=== PATIENT | female | born 1985 ===

== ENCOUNTER 2016-12-12 20:13 | Emergency (ER) | payer MEDICAID ==
[2016-12-12 20:41] VITALS: BMI 28.3
[2016-12-12 20:43] VITALS: RESP 17; TEMP 97.9
--- NOTE | 2016-12-12 21:04 | ED PDOC ---
Arrival/HPI - General Chief Complaint: Headache Time Seen by Provider: 12/12/16 20:56 Historian: Patient - History of Present Illness Narrative History of Present Illness (Text): 12/12/16 21:10 Miriam Yanes is a 31 year old female, whose past medical history includes migraines, GERD, depression, and bipolar disorder, who presents to the Emergency department complaining of right ear pain for the past few days. Patient also reports associated right-sided headache, which she states is consistent with previous migraines. Patient denies any fever, chills, chest pain , shortness of breath, nausea, vomiting, diarrhea, urinary symptoms, back pain, neck pain, dizziness, vision changes, focal neurological deficits, or any other complaints. Time/Duration: < week (few days) Symptom Onset: Gradual Symptom Course: Unchanged Activities at Onset: Rest, Light Modifying Factors (Text): none Context: Home Past Medical History - Provider Review Nursing Documentation Reviewed: Yes - Infectious Disease Hx of Infectious Diseases: None - Tetanus Immunization Tetanus Immunization: Unknown - Cardiac Hx Cardiac Disorders: No - Pulmonary Hx Respiratory Disorders: Yes Hx Asthma: Yes - Neurological Hx Neurological Disorder: Yes Hx Migraine: Yes - HEENT Hx HEENT Disorder: No - Renal Hx Renal Disorder: No - Endocrine/Metabolic Hx Endocrine Disorders: Yes Hx Diabetes Mellitus Type 2: Yes Hx Systemic Lupus Erythematosus: Yes - Hematological/Oncological Hx Blood Disorders: No - Integumentary Hx Dermatological Disorder: No - Musculoskeletal/Rheumatological Hx Musculoskeletal Disorders: No Hx Falls: No - Gastrointestinal Hx Gastrointestinal Disorders: No - Genitourinary/Gynecological Hx Genitourinary Disorders: Yes Hx Urinary Tract Infection: Yes Other/Comment: 5 natural delivery - Psychiatric Hx Psychophysiologic Disorder: Yes Hx Bipolar Disorder: Yes Hx Substance Use: No - Surgical History Hx Appendectomy: Yes Hx Cholecystectomy: Yes - Anesthesia Hx Anesthesia: Yes Hx Anesthesia Reactions: No Hx Malignant Hyperthermia: No - Suicidal Assessment Feels Threatened In Home Enviroment: No Family/Social History - Physician Review Nursing Documentation Reviewed: Yes Family/Social History: No Known Family HX Smoking Status: Never Smoked Hx Alcohol Use: No Hx Substance Use: No Allergies/Home Meds Allergies/Adverse Reactions: Allergies latex Allergy (Verified 01/03/16 18:46) RASH nut - unspecified [nut] Allergy (Verified 01/03/16 18:46) RASH Penicillins Allergy (Verified 01/03/16 18:46) RASH Home Medications: Home Meds Medication Instructions Recorded Confirmed FLUoxetine [Prozac] 20 mg PO DAILY 06/09/15 01/03/16 Metformin Hydrochloride [Metformin] 500 mg PO DAILY 06/09/15 01/03/16 Albuterol HFA [Ventolin HFA 90 1 puff INH PRN PRN 12/03/15 01/03/16 mcg/actuation (8 g)] Medication For Lupus Unsure Of Name 12/03/15 Unknown Medication For Migraine 12/03/15 Review of Systems - Physician Review All systems were reviewed & negative as marked: Yes - Review of Systems Constitutional: Normal. absent: Fevers Eyes: Normal ENT: Other (+right ear pain) Respiratory: Normal. absent: SOB, Cough Cardiovascular: Normal. absent: Chest Pain Gastrointestinal: Normal. absent: Abdominal Pain, Diarrhea, Nausea, Vomiting Genitourinary Female: Normal. absent: Dysuria, Frequency, Hematuria, Urine Output Changes Musculoskeletal: Normal. absent: Back Pain, Neck Pain Skin: Normal. absent: Rash Neurological: Headache. absent: Dizziness Endocrine: Normal Hemo/Lymphatic: Normal Psychiatric: Normal Physical Exam Vital Signs Reviewed: Yes Vital Signs Temp Pulse Resp BP Pulse Ox 12/12/16 22:50 76 17 122/70 98 12/12/16 20:41 97.9 F 82 17 113/73 99 Temperature: Afebrile Blood Pressure: Normal Pulse: Regular Respiratory Rate: Normal Appearance: Positive for: Well-Appearing, Non-Toxic, Comfortable Pain Distress: None Mental Status: Positive for: Alert and Oriented X 3 - Systems Exam Head: Present: Atraumatic, Normocephalic Pupils: Present: PERRL Extroacular Muscles: Present: EOMI Conjunctiva: Present: Normal Ears: Present: Other (Swelling to right TM) Mouth: Present: Moist Mucous Membranes Pharnyx: Present: Normal. No: ERYTHEMA, EXUDATE, TONSILS ENLARGED, Peritonsilar Swelling, Uvular Deviation, Muffled/Hoarse Voice, Strider, Soft Palate/Uvular Edema Nose (External): Present: Atraumatic Nose (Internal): Present: Normal Inspection Neck: Present: Normal Range of Motion. No: Meningeal Signs, MIDLINE TENDERNESS , Paraspinal Tenderness Respiratory/Chest: Present: Clear to Auscultation, Good Air Exchange. No: Respiratory Distress, Accessory Muscle Use Cardiovascular: Present: Regular Rate and Rhythm, Normal S1, S2. No: Murmurs Abdomen: Present: Normal Bowel Sounds. No: Tenderness, Distention, Peritoneal Signs Neurological: Present: GCS=15, CN II-XII Intact, Speech Normal, Motor Func Grossly Intact, Normal Sensory Function, Normal Cerebellar Funct Skin: Present: Warm, Dry, Normal Color. No: Rashes Psychiatric: Present: Alert, Oriented x 3, Normal Insight, Normal Concentration Medical Decision Making ED Course and Treatment: 12/12/16 21:10 Impression: 31 year old female complaining of right ear pain and right-sided headache for past few days. Differential Diagnosis included but are not limited to: otitis media vs. migraine Plan: -- Biaxin -- Percocet -- Reassess and disposition Prior Visits: Notes and results from previous visits were reviewed. On 01/23/2016, pt was seen in the Emergency department for flank pain. Pt was d/ c home. Progress Notes: 12/12/16 22:40 On reevaluation the patient feels better and is in no acute distress. I have discussed the results and plan with the patient, who expresses understanding. Patient given the opportunity to ask question, all questions were answered and there is agreement with the plan to discharge the patient home. Patient is stable for discharge. Patient was instructed to follow up with physician/clinic in 1-2 days or return if symptoms persist/worsen or new concerning symptoms arise. - Medication Orders Current Medication Orders: Discontinued Medications Clarithromycin (Biaxin Filmtab) 500 mg PO STAT STA PRN Reason: Protocol Stop: 12/12/16 21:20 Last Admin: 12/12/16 21:39 Dose: 500 mg Ketorolac Tromethamine (Toradol) 60 mg IM ONCE ONE Stop: 12/12/16 22:00 Last Admin: 12/12/16 22:26 Dose: 60 mg Oxycodone/Acetaminophen (Percocet 5/325 Mg Tab) 1 tab PO STAT STA Stop: 12/12/16 21:19 Last Admin: 12/12/16 21:32 Dose: 1 tab - Scribe Statement The provider has reviewed the documentation as recorded by the Estelle Lane Provider Attestation: All medical record entries made by the Gretchenibtyler were at my direction and personally dictated by me. I have reviewed the chart and agree that the record accurately reflects my personal performance of the history, physical exam, medical decision making, and the department course for this patient. I have also personally directed, reviewed, and agree with the discharge instructions and disposition. Disposition/Present on Arrival - Present on Arrival Any Indicators Present on Arrival: No History of DVT/PE: No History of Uncontrolled Diabetes: No Urinary Catheter: No History of Decub. Ulcer: No History Surgical Site Infection Following: None - Disposition Have Diagnosis and Disposition been Completed?: Yes Diagnosis: Otitis media of right ear Disposition: HOME/ ROUTINE Disposition Time: 22:41 Condition: GOOD Discharge Instructions (ExitCare): Otitis Media (ED) Prescriptions: Clarithromycin [Biaxin Filmtab] 500 mg PO BID #20 tab oxyCODONE/Acetaminophen [Percocet 5/325 mg Tab] 1 ea PO QID #8 tab Referrals: Jesu Mares MD [Primary Care Provider] - Follow up with primary Sly Banuelos DO [Staff Provider] - Follow up with primary
[2016-12-12] MEDS ORDERED: Oxycodone/Acetaminophen 5/325 mg Tab PO STA (21:18)
[2016-12-12 22:51] VITALS: BP 122/70; PULSE 76; O2SAT 98
== END 2016-12-12 22:50 | disposition home or self-care (01) ==
LOC: ED 20:13
DX: H66.91 Otitis media, unspecified, right ear (principal)
CPT/HCPCS: 96372; 99285; J1885

== ENCOUNTER 2017-02-21 22:00 | Emergency (ER) | payer MEDICAID ==
[2017-02-21 22:23] VITALS: BMI 29.2
[2017-02-21] MEDS ORDERED: Sodium Chloride 0.9% 1,000 ML IV STA (22:40)
[2017-02-21] MEDS ORDERED: Morphine 2 mg/ml ISec IVP STA (22:58)
--- NOTE | 2017-02-21 23:10 | ED PDOC ---
Arrival/HPI - General Chief Complaint: GI Problem Time Seen by Provider: 02/21/17 22:39 Historian: Patient - History of Present Illness Narrative History of Present Illness (Text): 02/21/17 22:53 Miriam Yanes is a 31 year old female, whose past medical history includes migraine, GERD, depression, and bipolar disorder, who presents to the emergency department complaining of a migraine that started 2 days ago. Patient states that she experienced associated body aches, chills, vision changes, and multiple episodes of vomiting since 06:00 this morning. Patient says that has been taking prescribed migraine medications (unable to recall name) every 6 hours to no relief. Patient denies any other complaint at this time. PMD: Dr. Mares Time/Duration: < week Symptom Onset: Gradual Symptom Course: Unchanged Severity Level: Moderate Activities at Onset: Rest Context: Home Past Medical History - Provider Review Nursing Documentation Reviewed: Yes - Infectious Disease Hx of Infectious Diseases: None - Tetanus Immunization Tetanus Immunization: Unknown - Cardiac Hx Cardiac Disorders: No - Pulmonary Hx Respiratory Disorders: Yes Hx Asthma: Yes - Neurological Hx Neurological Disorder: Yes Hx Migraine: Yes - HEENT Hx HEENT Disorder: No - Renal Hx Renal Disorder: No - Endocrine/Metabolic Hx Endocrine Disorders: Yes Hx Diabetes Mellitus Type 2: Yes Hx Systemic Lupus Erythematosus: Yes - Hematological/Oncological Hx Blood Disorders: No - Integumentary Hx Dermatological Disorder: No - Musculoskeletal/Rheumatological Hx Musculoskeletal Disorders: No Hx Falls: No - Gastrointestinal Hx Gastrointestinal Disorders: No - Genitourinary/Gynecological Hx Genitourinary Disorders: Yes Hx Urinary Tract Infection: Yes Other/Comment: 5 natural delivery - Psychiatric Hx Psychophysiologic Disorder: Yes Hx Bipolar Disorder: Yes Hx Substance Use: No - Surgical History Hx Appendectomy: Yes Hx Cholecystectomy: Yes - Anesthesia Hx Anesthesia: Yes Hx Anesthesia Reactions: No Hx Malignant Hyperthermia: No - Suicidal Assessment Feels Threatened In Home Enviroment: No Family/Social History - Physician Review Nursing Documentation Reviewed: Yes Family/Social History: No Known Family HX Smoking Status: Never Smoked Hx Alcohol Use: No Hx Substance Use: No Allergies/Home Meds Allergies/Adverse Reactions: Allergies latex Allergy (Verified 02/21/17 22:23) RASH nut - unspecified [nut] Allergy (Verified 02/21/17 22:23) RASH Penicillins Allergy (Verified 02/21/17 22:23) RASH Home Medications: Home Meds Medication Instructions Recorded Confirmed No Known Home Med 02/21/17 02/21/17 Review of Systems - Physician Review All systems were reviewed & negative as marked: Yes - Review of Systems Constitutional: Other (body aches). absent: Fevers, Night Sweats Eyes: Vision Changes ENT: absent: Hearing Changes Respiratory: absent: SOB, Cough Cardiovascular: absent: Chest Pain Gastrointestinal: Nausea, Vomiting. absent: Abdominal Pain Genitourinary Female: absent: Dysuria Musculoskeletal: absent: Arthralgias Skin: absent: Rash Neurological: Headache (Migraine) Endocrine: absent: Diaphoresis Hemo/Lymphatic: absent: Adenopathy Psychiatric: absent: Anxiety Physical Exam Vital Signs Reviewed: Yes Vital Signs Temp Pulse Resp BP Pulse Ox 02/22/17 01:43 85 17 120/77 97 02/21/17 22:26 98.9 F 89 14 123/74 99 Temperature: Afebrile Blood Pressure: Normal Pulse: Regular Respiratory Rate: Normal Appearance: Positive for: Well-Appearing, Non-Toxic, Comfortable Pain Distress: None Mental Status: Positive for: Alert and Oriented X 3 - Systems Exam Head: Present: Atraumatic, Normocephalic Pupils: Present: PERRL Extroacular Muscles: Present: EOMI Conjunctiva: Present: Normal Mouth: Present: Moist Mucous Membranes Neck: Present: Normal Range of Motion Respiratory/Chest: Present: Clear to Auscultation, Good Air Exchange. No: Respiratory Distress, Accessory Muscle Use Cardiovascular: Present: Regular Rate and Rhythm, Normal S1, S2. No: Murmurs Abdomen: Present: Normal Bowel Sounds. No: Tenderness, Distention, Peritoneal Signs Back: Present: Normal Inspection Upper Extremity: Present: Normal Inspection. No: Cyanosis, Edema Lower Extremity: Present: Normal Inspection. No: Edema Neurological: Present: GCS=15, CN II-XII Intact, Speech Normal Skin: Present: Warm, Dry, Normal Color. No: Rashes Psychiatric: Present: Alert, Oriented x 3, Normal Insight, Normal Concentration Medical Decision Making ED Course and Treatment: 02/21/17 20:53 Impression: 31 year old female complaining of a migraine episode with associated vomiting, body aches, chills and vision changes for 2 days. Differential Diagnosis include but are not limited to: Migraine Plan: -- Urinalysis -- Labs -- Pepcid, Toradol, Zofran, Morphine, and IV Fluids -- Reassess and disposition Prior Visits: Notes and results from previous visits were reviewed. Patient last seen in ED on 12/12/16 for right ear pain for a few days. Patient was discharged home. Progress Notes: - Lab Interpretations Lab Results: 02/21/17 22:55 02/21/17 22:55 Lab Results 02/21/17 22:55: Sodium 136, Potassium 3.6, Chloride 103, Carbon Dioxide 25, Anion Gap 12, BUN 17, Creatinine 0.6, Est GFR ( Amer) > 60, Est GFR (Non- Af Amer) > 60, Random Glucose 92, Calcium 8.6, Total Bilirubin 0.3, AST 20, ALT 32, Alkaline Phosphatase 76, Total Protein 7.2, Albumin 3.8, Globulin 3.3, Albumin/Globulin Ratio 1.2, Lipase 123 02/21/17 22:55: Urine Color Light yellow, Urine Appearance Clear, Urine pH 6.0, Ur Specific [place] 1.010, Urine Protein Negative, Urine Glucose (UA) Negative, Urine Ketones Negative, Urine Blood Trace-lysed H, Urine Nitrate Negative, Urine Bilirubin Negative, Urine Urobilinogen 0.2, Ur Leukocyte Esterase Trace H , Urine RBC 0 - 2, Urine WBC 0 - 2, Ur Epithelial Cells 1 - 3, Urine Bacteria Few 02/21/17 22:55: WBC 8.1, RBC 4.13, Hgb 11.9 L, Hct 35.5 L, MCV 86.0, MCH 28.8, MCHC 33.5, RDW 13.4, Plt Count 253, MPV 10.3, Gran % 70.4 H, Lymph % (Auto) 23.1 , [place] % (Auto) 4.8, Eos % (Auto) 1.6, Baso % (Auto) 0.1, Gran # 5.67, Lymph # 1.9, [place] # 0.4, Eos # 0.1, Baso # 0.01 I have reviewed the lab results: Yes - Medication Orders Current Medication Orders: Discontinued Medications Acetaminophen (Tylenol 325mg Tab) 975 mg PO STAT STA Stop: 02/22/17 00:28 Last Admin: 02/22/17 00:52 Dose: 975 mg Codeine Sulfate (Codeine) 30 mg PO STAT STA Stop: 02/22/17 00:28 Last Admin: 02/22/17 00:58 Dose: 30 mg Famotidine (Pepcid) 20 mg IVP STAT STA Stop: 02/21/17 22:41 Last Admin: 02/21/17 23:02 Dose: 20 mg Sodium Chloride (Sodium Chloride 0.9%) 1,000 mls @ 1,000 mls/hr IV .Q1H STA Stop: 02/21/17 23:39 Last Admin: 02/21/17 23:03 Dose: 1,000 mls/hr Ketorolac Tromethamine (Toradol) 30 mg IVP STAT STA Stop: 02/21/17 22:59 Last Admin: 02/21/17 23:15 Dose: 30 mg Morphine Sulfate (Morphine) 2 mg IVP STAT STA Stop: 02/21/17 22:59 Last Admin: 02/21/17 23:18 Dose: 2 mg Ondansetron HCl (Zofran Inj) 4 mg IVP STAT STA Stop: 02/21/17 22:41 Last Admin: 02/21/17 23:03 Dose: 4 mg - Scribe Statement The provider has reviewed the documentation as recorded by the Estelle Coats Provider Scribe Attestation: All medical record entries made by the Estelle were at my direction and personally dictated by me. I have reviewed the chart and agree that the record accurately reflects my personal performance of the history, physical exam, medical decision making, and the department course for this patient. I have also personally directed, reviewed, and agree with the discharge instructions and disposition. Disposition/Present on Arrival - Present on Arrival Any Indicators Present on Arrival: No History of DVT/PE: No History of Uncontrolled Diabetes: No Urinary Catheter: No History of Decub. Ulcer: No History Surgical Site Infection Following: None - Disposition Have Diagnosis and Disposition been Completed?: Yes Diagnosis: Migraine headache Disposition: HOME/ ROUTINE Disposition Time: 00:30 Condition: IMPROVED Discharge Instructions (ExitCare): Migraine Headache (ED) Additional Instructions: Thank you for letting us take care of you today. Your provider was Dr. Lewis. You were treated for a migraine headache. The emergency medical care you received today was directed at your acute symptoms. If you were prescribed any medication, please fill it and take as directed. It may take several days for your symptoms to resolve. Return to the Emergency Department if your symptoms worsen, do not improve, or if you have any other problems. Please contact your doctor or call one of the physicians/clinics you have been referred to that are listed on the Patient Visit Information form that is included in your discharge packet. Bring any paperwork you were given at discharge with you along with any medications you are taking to your follow up visit. Our treatment cannot replace ongoing medical care by a primary care provider (PCP) outside of the emergency department. Thank you for allowing the [facility] team to be part of your care today. Follow up with your doctor in 2-3 days for re-evaluation and further treatment. Referrals: Jesu Mares MD [Primary Care Provider] - Follow up with primary
[2017-02-21 23:14] LABS: BASO # 0.01 K/mm3 (0.0-2.0); BASO % 0.1 % (0.0-3.0); EOS # 0.1 (0.0-0.7); EOS % 1.6 % (1.5-5.0); GRAN # 5.67 (1.4-6.5); GRAN % 70.4 % (50.0-68.0); HEMOGLOBIN 11.9 gm/dL (12.0-16.0); LYMPH # 1.9 (1.2-3.4); LYMPH % 23.1 % (22.0-35.0); MEAN CORPUSCULAR HEMOGLOBIN 28.8 pg (25.0-35.0); MEAN CORPUSCULAR HGB CONC 33.5 g/dl (31.0-37.0); MEAN PLATELET VOLUME 10.3 fl (7.0-11.0); MONO # 0.4 (0.1-0.6); MONO % 4.8 % (1.0-6.0); PLATELET COUNT 253 10^3/uL (120.0-450.0); RBC 4.13 10^6/uL (3.5-6.1); RED CELL DISTRIBUTION WIDTH 13.4 % (11.5-14.5); WHITE BLOOD COUNT 8.1 10^3/ul (4.5-11.0)
[2017-02-21 23:15] LABS: URINE BILIRUBIN NEGATIVE (NEGATIVE); URINE BLOOD TRACE-LYSED (NEGATIVE); URINE GLUCOSE (UA) NEGATIVE (NEGATIVE); URINE LEUKOCYTE ESTERASE TRACE Leu/uL (NEGATIVE); URINE NITRATE NEGATIVE (NEGATIVE); URINE PROTEIN NEGATIVE mg/dL (<30 mg/dL); URINE UROBILINOGEN 0.2 E.U./dL (<1 E.U./dL)
[2017-02-21 23:16] LABS: URINE APPEARANCE CLEAR (CLEAR); URINE COLOR LIGHT YELLOW (YELLOW)
[2017-02-21 23:20] LABS: ALB/GLOB RATIO 1.2 (1.1-1.8); ALBUMIN 3.8 g/dL (3.0-4.8); ALT/SGPT 32 U/L (7-56); AST/SGOT 20 U/L (15-39); BLOOD UREA NITROGEN 17 mg/dL (7-21); CALCIUM 8.6 mg/dL (8.4-10.5); GFR AFRICAN-AMERICAN > 60; GFR NON-AFRICAN AMERICAN > 60; LIPASE 123 U/L (23-300)
[2017-02-21 23:34] LABS: URINE RBC 0 - 2 /hpf (0-2)
[2017-02-21 23:36] LABS: URINE BACTERIA FEW (NEG); URINE WBC 0 - 2 /hpf (0-6)
[2017-02-22 01:08] VITALS: TEMP 98.9
[2017-02-22 01:43] VITALS: BP 120/77; PULSE 85; RESP 17; O2SAT 97
== END 2017-02-22 01:44 | disposition home or self-care (01) ==
LOC: ED 22:00
DX: G43.909 Migraine, unspecified, not intractable, without status migrainosus (principal); E11.9 Type 2 diabetes mellitus without complications; M32.9 Systemic lupus erythematosus, unspecified
CPT/HCPCS: 80053; 81001; 83690; 85025; 87086; 96374; 96375; 99283; J1885; J2270; J2405; J7040

== ENCOUNTER 2017-09-20 18:54 | Emergency (ER) | payer MEDICAID ==
[2017-09-20 18:54] VITALS: BMI 29.2
[2017-09-20 19:03] VITALS: TEMP 98.2
[2017-09-20] MEDS ORDERED: Sodium Chloride 0.9% 1,000 ML IV STA (19:40)
--- NOTE | 2017-09-20 19:51 | ED PDOC ---
Arrival/HPI - General Historian: Patient - History of Present Illness Time/Duration: Other (since the morning) Symptom Onset: Sudden Symptom Course: Unchanged - General Chief Complaint: Abdominal Pain Time Seen by Provider: 09/20/17 19:15 - History of Present Illness Narrative History of Present Illness (Text): 09/20/17 19:49 32F with past medical history includes migraine, GERD, depression, and bipolar disorder, ovarian cyst rupture, Lupus. Patient states the left pelvic pain started today. Patient admits to nausea, vomiting, and diarrhea. Patient states she's never had this problem before. Patient states she had oatmeal for the first time today with milk. Patient states she doesn't normally drink milk because it causes her to be bloated. Patient states that when she eats whole wheat bread, she feels that she gets an itchy feeling in her throat. Patient denies fever, chills, admits to a history of ovarian cyst rupture and recently diagnosed with Lupus. Patient admits to nausea, vomiting and diarrhea for one day. LMP: one year ago (on control pills) PMH: migraine, GERD, depression, and bipolar disorder, ovarian cyst rupture, Lupus (not on steroids. just diagnosed). SH: appendectomy, cholecystectomy allergies: penicillin PMD: Dr. Mares ([facility]) Past Medical History - Provider Review Nursing Documentation Reviewed: Yes - Infectious Disease Hx of Infectious Diseases: None - Tetanus Immunization Tetanus Immunization: Unknown - Reproductive Menopause: No Currently : No - Cardiac Hx Cardiac Disorders: No - Pulmonary Hx Respiratory Disorders: Yes Hx Asthma: Yes - Neurological Hx Neurological Disorder: Yes Hx Migraine: Yes - HEENT Hx HEENT Disorder: No - Renal Hx Renal Disorder: No - Endocrine/Metabolic Hx Endocrine Disorders: Yes Hx Diabetes Mellitus Type 2: Yes Hx Systemic Lupus Erythematosus: Yes - Hematological/Oncological Hx Blood Disorders: No - Integumentary Hx Dermatological Disorder: No - Musculoskeletal/Rheumatological Hx Musculoskeletal Disorders: No Hx Falls: No - Gastrointestinal Hx Gastrointestinal Disorders: No - Genitourinary/Gynecological Hx Genitourinary Disorders: Yes Hx Urinary Tract Infection: Yes Other/Comment: 5 natural delivery - Psychiatric Hx Psychophysiologic Disorder: No Hx Substance Use: No - Surgical History Hx Appendectomy: Yes Hx Cholecystectomy: Yes - Anesthesia Hx Anesthesia: Yes Hx Anesthesia Reactions: No Hx Malignant Hyperthermia: No - Suicidal Assessment Feels Threatened In Home Enviroment: No Family/Social History - Physician Review Nursing Documentation Reviewed: Yes Family/Social History: Unknown Family HX Smoking Status: Never Smoked Hx Alcohol Use: No Hx Substance Use: No Allergies/Home Meds Allergies/Adverse Reactions: Allergies latex Allergy (Verified 09/20/17 18:56) RASH nut - unspecified [nut] Allergy (Verified 09/20/17 18:56) RASH Penicillins Allergy (Verified 09/20/17 18:56) RASH Home Medications: Home Meds Medication Instructions Recorded Confirmed metFORMIN [glucOPHAGE] 500 mg PO DAILY 09/20/17 09/20/17 Review of Systems - Review of Systems Constitutional: absent: Fatigue, Weight Change, Fevers Eyes: absent: Vision Changes, Photophobia, Eye Pain ENT: absent: Hearing Changes, Tinnitus, TMJ Pain Respiratory: absent: SOB, Cough, Sputum Gastrointestinal: Stool Changes, Diarrhea, Nausea, Vomiting, Food Intolerance ( lactose and oat intolerance). absent: Abdominal Pain, Appetite Changes, Hematochezia, Hematemesis, Anorexia Musculoskeletal: Other (hip pain) Skin: absent: Rash, Pruritis, Skin Lesions Neurological: Other Endocrine: absent: Diaphoresis, Polyuria, Polydipsia Hemo/Lymphatic: absent: Adenopathy, Easy Bleeding, Easy Bruising Psychiatric: absent: Anxiety, Depression, Suicidal Ideation Physical Exam Temperature: Afebrile Blood Pressure: Normal Pulse: Regular Respiratory Rate: Normal Appearance: Positive for: Non-Toxic, Uncomfortable - Systems Exam Head: Present: Atraumatic, Normocephalic Pupils: Present: PERRL. No: Sluggish, Non-Reactive, Pinpoint Extroacular Muscles: Present: EOMI Conjunctiva: Present: Normal. No: Injected, Icteric Mouth: Present: Dry Pharnyx: Present: Normal. No: ERYTHEMA, EXUDATE Nose (External): Present: Atraumatic. No: Abrasion, Contusion, Laceration Nose (Internal): Present: Normal Inspection Neck: Present: Normal Range of Motion, Lymphadenopathy, Trachea Midline. No: MIDLINE TENDERNESS, JVD Respiratory/Chest: Present: Clear to Auscultation, Good Air Exchange, Respiratory Distress. No: Accessory Muscle Use, Wheezes, Decreased Breath Sounds Cardiovascular: Present: Regular Rate and Rhythm, Normal S1, S2 Abdomen: No: Tenderness, Distention Genitourinary/Pelvic Exam: Present: Other ( left inguinal pain on palpation and with abduction of left leg and external rotatation of left leg) Upper Extremity: Present: Normal Inspection, Normal ROM, Capillary Refill < 2s. No: Edema Lower Extremity: Present: Normal Inspection, NORMAL PULSES, Normal ROM, Capillary Refill < 2 s, Other (no inguinal hernia noted) Neurological: Present: GCS=15, CN II-XII Intact, Speech Normal, Motor Func Grossly Intact Skin: Present: Warm, Dry, Rashes (heliotrope rash noted), Normal Color. No: Diaphoretic, Erythematous, Induration, Abscess Lymphatic: No: Inguinal Adenopathy Psychiatric: Present: Alert, Oriented x 3, Normal Insight, Normal Concentration , Normal Affect (flat) Vital Signs Temp Pulse Resp BP Pulse Ox 09/20/17 18:58 98.2 F 96 H 18 114/79 97 Medical Decision Making - Lab Interpretations Interpretation: No clinic. lab abnormalty ED Course and Treatment: Patient Seen With Resident: In agreement with resident note which contains more details about the patient. Patient was seen and evaluated with resident. Came up with plan and treatment together. (Jarrett Villegas) 09/20/17 20:23 transvaginal us Zofran 1L NS Bolus tylenol for pain 09/20/17 21:01 revisited patient. Patient states tylenol did not touch her and it was like drinking water. Patient sitting cross-legged and stating she still felt nauseous. (Rebekah Fernandez) - Lab Interpretations Lab Results: 09/20/17 19:50 09/20/17 19:50 Lab Results 09/20/17 19:58: Urine Color Yellow, Urine Appearance Clear, Urine pH 6.0, Ur Specific [place] >= 1.030, Urine Protein Trace H, Urine Glucose (UA) Negative, Urine Ketones Negative, Urine Blood Trace-intact H, Urine Nitrate Negative, Urine Bilirubin Negative, Urine Urobilinogen 0.2, Ur Leukocyte Esterase Negative , Urine RBC 2 - 5, Urine WBC Negative, Ur Epithelial Cells 6 - 8, Amorphous Sediment Few, Urine Bacteria Many, Hyaline Casts 0 - 2 09/20/17 19:50: Sodium 144, Potassium 3.8, Chloride 105, Carbon Dioxide 26, Anion Gap 16, BUN 16, Creatinine 0.7, Est GFR ( Amer) > 60, Est GFR (Non- Af Amer) > 60, Random Glucose 79, Calcium 9.8, Magnesium 2.1, Total Bilirubin 0.6, AST 24, ALT 38, Alkaline Phosphatase 80, Total Protein 8.2, Albumin 4.5, Globulin 3.7, Albumin/Globulin Ratio 1.2 09/20/17 19:50: WBC 7.5, RBC 4.49, Hgb 13.0, Hct 38.7, MCV 86.2, MCH 29.0, MCHC 33.6, RDW 13.4, Plt Count 264, MPV 10.8, Gran % 58.0, Lymph % (Auto) 34.7, [place] % (Auto) 4.9, Eos % (Auto) 2.3, Baso % (Auto) 0.1, Gran # 4.37, Lymph # (Auto) 2.6, [place] # (Auto) 0.4, Eos # (Auto) 0.2, Baso # (Auto) 0.01 09/20/17 19:50 09/20/17 19:50 Lab Results 09/20/17 19:58: Urine Color Yellow, Urine Appearance Clear, Urine pH 6.0, Ur Specific [place] >= 1.030, Urine Protein Trace H, Urine Glucose (UA) Negative, Urine Ketones Negative, Urine Blood Trace-intact H, Urine Nitrate Negative, Urine Bilirubin Negative, Urine Urobilinogen 0.2, Ur Leukocyte Esterase Negative , Urine RBC 2 - 5, Urine WBC Negative, Ur Epithelial Cells 6 - 8, Amorphous Sediment Few, Urine Bacteria Many, Hyaline Casts 0 - 2 09/20/17 19:50: Sodium 144, Potassium 3.8, Chloride 105, Carbon Dioxide 26, Anion Gap 16, BUN 16, Creatinine 0.7, Est GFR ( Amer) > 60, Est GFR (Non- Af Amer) > 60, Random Glucose 79, Calcium 9.8, Magnesium 2.1, Total Bilirubin 0.6, AST 24, ALT 38, Alkaline Phosphatase 80, Total Protein 8.2, Albumin 4.5, Globulin 3.7, Albumin/Globulin Ratio 1.2 09/20/17 19:50: WBC 7.5, RBC 4.49, Hgb 13.0, Hct 38.7, MCV 86.2, MCH 29.0, MCHC 33.6, RDW 13.4, Plt Count 264, MPV 10.8, Gran % 58.0, Lymph % (Auto) 34.7, [place] % (Auto) 4.9, Eos % (Auto) 2.3, Baso % (Auto) 0.1, Gran # 4.37, Lymph # (Auto) 2.6, [place] # (Auto) 0.4, Eos # (Auto) 0.2, Baso # (Auto) 0.01 no leukocytosis, no electrolyte abnormalities trace blood in urine, trace protein in urine (Eng,Rebekah) - RAD Interpretation Narrative RAD Interpretations (Text): 09/20/17 21:33 transvaginal US results: Normal Sized ovaries with vascular flow, Uterus 8.6x3.3x5.8cm prominent vascularity noted in uterus, no myometrial mass, endometrial thickness 4mm, Cervix measures 3 cm (Eng,Rebekah) Radiology Orders: 09/20/17 19:40 TRANSVAGINAL [US] Urgent - Medication Orders Current Medication Orders: Discontinued Medications Acetaminophen (Tylenol 325mg Tab) 650 mg PO STAT STA Stop: 09/20/17 19:41 Last Admin: 09/20/17 19:55 Dose: 650 mg MAR Pain/Vitals Document 09/20/17 19:55 AB (Rec: 09/20/17 19:55 [facility] Pain Reassessment Is This A Pain ReAssessment? Yes Sleep Is patient sleeping during reassessment? No Presence of Pain Presence of Pain Yes Sodium Chloride (Sodium Chloride 0.9%) 1,000 mls @ 999 mls/hr IV .Q1H1M STA Stop: 09/20/17 20:40 Last Admin: 09/20/17 19:54 Dose: 999 mls/hr eMAR Start Stop Document 09/20/17 19:54 AB (Rec: 09/20/17 19:55 [email or web address] Intravenous Solution Start Date 09/20/17 Start Time 19:55 End Date 09/20/17 End time 20:55 Total Infusion Time 60 Ondansetron HCl (Zofran Odt) 8 mg PO STAT STA Stop: 09/20/17 19:41 Ondansetron HCl (Zofran Inj) 8 mg IVP STAT STA Stop: 09/20/17 21:00 Disposition/Present on Arrival - Present on Arrival Any Indicators Present on Arrival: No History of DVT/PE: No History of Uncontrolled Diabetes: No Urinary Catheter: No History of Decub. Ulcer: No History Surgical Site Infection Following: None - Disposition Have Diagnosis and Disposition been Completed?: Yes Disposition Time: 21:34 - Disposition Diagnosis: Muscle strain Disposition: HOME/ ROUTINE Patient Problems: Current Active Problems Problem Status Onset Muscle strain Acute Condition: IMPROVED Additional Instructions: patient can follow up with primary care doctor in one week Transvaginal US negative for ovarian torsion, cysts, no free fluid stay hydrated avoid drinking milk/dairy products and avoid oats return to Emergency room for continued vomiting, diarrhea take tylenol as directed Referrals: Jesu Mares MD [Primary Care Provider] - Follow up with primary Forms: [employer] ([place])
[2017-09-20 20:01] LABS: URINE BILIRUBIN NEGATIVE (NEGATIVE); URINE BLOOD TRACE-INTACT (NEGATIVE); URINE GLUCOSE (UA) NEGATIVE (NEGATIVE); URINE LEUKOCYTE ESTERASE NEGATIVE Leu/uL (NEGATIVE); URINE NITRATE NEGATIVE (NEGATIVE); URINE PROTEIN TRACE mg/dL (<30 mg/dL); URINE UROBILINOGEN 0.2 E.U./dL (<1 E.U./dL)
[2017-09-20 20:04] LABS: URINE APPEARANCE CLEAR (CLEAR); URINE COLOR YELLOW (YELLOW)
[2017-09-20 20:06] LABS: URINE BACTERIA MANY (NEG); URINE HYALINE CAST 0 - 2 /hpf; URINE WBC NEGATIVE /hpf (0-6)
[2017-09-20 20:07] LABS: URINE AMORPHOUS SEDIMENT FEW
[2017-09-20 20:49] LABS: ALB/GLOB RATIO 1.2 (1.1-1.8); ALBUMIN 4.5 g/dL (3.0-4.8); ALT/SGPT 38 U/L (7-56); AST/SGOT 24 U/L (14-36); BLOOD UREA NITROGEN 16 mg/dL (7-21); CALCIUM 9.8 mg/dL (8.4-10.5); GFR AFRICAN-AMERICAN > 60; GFR NON-AFRICAN AMERICAN > 60; MAGNESIUM 2.1 mg/dL (1.7-2.2)
[2017-09-20 20:50] LABS: BASO # 0.01 K/mm3 (0.0-2.0); BASO % 0.1 % (0.0-3.0); EOS # 0.2 (0.0-0.7); EOS % 2.3 % (1.5-5.0); GRAN # 4.37 (1.4-6.5); LYMPH # 2.6 (1.2-3.4); LYMPH % 34.7 % (22.0-35.0); MEAN CELL VOLUME 86.2 fl (80.0-105.0); MEAN CORPUSCULAR HGB CONC 33.6 g/dl (31.0-37.0); MEAN PLATELET VOLUME 10.8 fl (7.0-11.0); MONO # 0.4 (0.1-0.6); MONO % 4.9 % (1.0-6.0); RBC 4.49 10^6/uL (3.5-6.1); RED CELL DISTRIBUTION WIDTH 13.4 % (11.5-14.5); WHITE BLOOD COUNT 7.5 10^3/ul (4.5-11.0)
[2017-09-20 21:56] VITALS: BP 138/70; PULSE 81; RESP 15; O2SAT 100
--- NOTE | 2017-09-23 16:07 | US ---
HISTORY: Left inguinal pain. LMP approximately 1 year ago. Currently taking Depo-Provera. COMPARISON: 01/23/2016. Obstetrical ultrasound TECHNIQUE: Transvaginal only. Real -time technique with 2D, duplex and color Doppler FINDINGS: UTERUS: Measures 3.3 x 8.6 cm. Normal in size and appearance. Hypervascular. Myometrium. The findings are nonspecific, can be seen with inflammatory, infectious process ease of the myometrium. No fibroid or other mass lesion seen. ENDOMETRIUM: Measures 4.2 mm in diameter. CERVIX: Closed cervix 3.23 cm in length. Incidental finding: Nabothian cysts the largest measures RIGHT OVARY: Measures 2 x 3.0 cm. No solid mass. Normal flow. LEFT OVARY: Measures 1.8 x 1.9 cm. No solid mass. Normal flow. FREE FLUID: No significant free fluid noted. OTHER FINDINGS: None. IMPRESSION: Mild increased in vascularity of the uterus common nonspecific finding. No focal abnormalities. Unremarkable endometrial echo complex and adnexa as visualized.
== END 2017-09-20 21:56 | disposition home or self-care (01) ==
LOC: ED 18:54
DX: S39.013A Strain of muscle, fascia and tendon of pelvis, initial encounter (principal); X58.XXXA Exposure to other specified factors, initial encounter; E11.9 Type 2 diabetes mellitus without complications; M32.9 Systemic lupus erythematosus, unspecified
CPT/HCPCS: 76830; 80053; 81001; 83735; 85025; 87086; 96361; 96374; 96375; 99283; J1885; J2405; J7040

== ENCOUNTER 2018-08-20 18:52 | Observation (INO) | payer MEDICAID ==
[2018-08-20 18:52] VITALS: BMI 29.2
[2018-08-20] MEDS ORDERED: Sodium Chloride 0.9% 1,000 ML IV STA (19:44)
[2018-08-20 20:09] LABS: URINE BILIRUBIN NEGATIVE (NEGATIVE); URINE BLOOD NEGATIVE (NEGATIVE); URINE GLUCOSE (UA) NEGATIVE (NEGATIVE); URINE LEUKOCYTE ESTERASE NEGATIVE Leu/uL (NEGATIVE); URINE PROTEIN TRACE mg/dL (<30 mg/dL); URINE UROBILINOGEN 0.2 E.U./dL (<1 E.U./dL)
[2018-08-20 20:25] LABS: URINE APPEARANCE CLEAR (CLEAR); URINE COLOR YELLOW (YELLOW)
[2018-08-20 20:28] LABS: URINE BACTERIA FEW /hpf; URINE RBC NEGATIVE /hpf (0-2)
[2018-08-20 20:37] LABS: BASO # 0.01 K/mm3 (0.0-2.0); BASO % 0.1 % (0.0-3.0); EOS # 0.3 (0.0-0.7); EOS % 2.9 % (1.5-5.0); GRAN # 6.6 (1.4-6.5); GRAN % 65.6 % (50.0-68.0); HEMOGLOBIN 13.8 g/dL (12.0-16.0); LYMPH # 2.7 (1.2-3.4); LYMPH % 26.6 % (22.0-35.0); MEAN CORPUSCULAR HEMOGLOBIN 29.2 pg (25.0-35.0); MEAN PLATELET VOLUME 10.2 fl (7.0-11.0); MONO # 0.5 (0.1-0.6); MONO % 4.8 % (1.0-6.0); RBC 4.72 10^6/uL (3.5-6.1); RED CELL DISTRIBUTION WIDTH 13.3 % (11.5-14.5); WHITE BLOOD COUNT 10.1 10^3/uL (4.5-11.0)
[2018-08-20 20:42] VITALS: BP 120/80
[2018-08-20 20:46] LABS: INR 1.04; PARTIAL THROMBOPLASTIN TIME 27.8 Seconds (25.1-36.5); PROTHROMBIN TIME 11.9 SECONDS (9.4-12.5)
[2018-08-20 21:59] LABS: ALB/GLOB RATIO 1.3 (1.1-1.8); ALBUMIN 4.4 g/dL (3.0-4.8); ALT/SGPT 27 U/L (7-56); AST/SGOT 20 U/L (14-36); BLOOD UREA NITROGEN 17 mg/dL (7-21); CALCIUM 8.9 mg/dL (8.4-10.5); GFR NON-AFRICAN AMERICAN > 60; LIPASE 107 U/L (23-300)
--- NOTE | 2018-08-20 22:29 | ED PDOC ---
Arrival/HPI - General Chief Complaint: GI Problem Time Seen by Provider: 08/20/18 18:57 Historian: Patient - History of Present Illness Narrative History of Present Illness (Text): 08/20/18 22:25 33yo female with past medical history of Lupus, Diabetes, RA who present with one week history of nonbillious/nonbloody vomiting, generalized body and joint pain, weakness. States she is on hydrochloroquine and complaint with the medication but having above symptoms. Notes similar symptoms with her previous Lupus flare-up. She denies abdominal pain, fever,chills, chest pain, SOB, diaphoresis, calf pain, dizziness, back pain, any other complaint. Past Medical History - Provider Review Nursing Documentation Reviewed: Yes - Infectious Disease Hx of Infectious Diseases: None - Tetanus Immunization Tetanus Immunization: Unknown - Cardiac Hx Cardiac Disorders: No - Pulmonary Hx Respiratory Disorders: Yes Hx Asthma: Yes - Neurological Hx Neurological Disorder: Yes Hx Migraine: Yes - HEENT Hx HEENT Disorder: No - Renal Hx Renal Disorder: No - Endocrine/Metabolic Hx Endocrine Disorders: Yes Hx Diabetes Mellitus Type 2: Yes Hx Systemic Lupus Erythematosus: Yes - Hematological/Oncological Hx Blood Disorders: No - Integumentary Hx Dermatological Disorder: No - Musculoskeletal/Rheumatological Hx Musculoskeletal Disorders: No Hx Falls: No - Gastrointestinal Hx Gastrointestinal Disorders: No - Genitourinary/Gynecological Hx Genitourinary Disorders: Yes Hx Urinary Tract Infection: Yes Other/Comment: 5 natural delivery - Psychiatric Hx Psychophysiologic Disorder: Yes Hx Bipolar Disorder: Yes Hx Substance Use: No - Surgical History Hx Appendectomy: Yes Hx Cholecystectomy: Yes - Anesthesia Hx Anesthesia: Yes Hx Anesthesia Reactions: No Hx Malignant Hyperthermia: No - Suicidal Assessment Feels Threatened In Home Enviroment: No Family/Social History - Physician Review Nursing Documentation Reviewed: Yes Family/Social History: Unknown Family HX Smoking Status: Never Smoked Hx Alcohol Use: No Hx Substance Use: No Allergies/Home Meds Allergies/Adverse Reactions: Allergies latex Allergy (Verified 09/20/17 18:56) RASH nut - unspecified [nut] Allergy (Verified 09/20/17 18:56) RASH Penicillins Allergy (Verified 09/20/17 18:56) RASH Home Medications: Home Meds Medication Instructions Recorded Confirmed RX: Hydroxychloroquine Sulfate 200 mg PO DAILY 08/21/18 08/21/18 [Plaquenil] Review of Systems - Physician Review All systems were reviewed & negative as marked: Yes - Review of Systems Constitutional: Fatigue Eyes: Normal ENT: Normal Respiratory: Normal Cardiovascular: Normal Gastrointestinal: Nausea, Vomiting. absent: Abdominal Pain, Constipation, Diarrhea, Hematochezia, Hematemesis Genitourinary Female: Normal Musculoskeletal: Myalgias Skin: Normal Neurological: Normal Endocrine: Normal Hemo/Lymphatic: Normal Psychiatric: Normal Physical Exam Vital Signs Reviewed: Yes Vital Signs Temp Pulse Resp BP Pulse Ox 08/20/18 20:36 97.6 F 16 120/80 100 08/20/18 18:52 98.9 F 89 18 109/76 97 Temperature: Afebrile Blood Pressure: Normal Pulse: Regular Respiratory Rate: Normal Appearance: Positive for: Well-Appearing, Non-Toxic, Comfortable Pain Distress: None Mental Status: Positive for: Alert and Oriented X 3 - Systems Exam Head: Present: Atraumatic, Normocephalic Pupils: Present: PERRL Extroacular Muscles: Present: EOMI Conjunctiva: Present: Normal Mouth: Present: Moist Mucous Membranes Neck: Present: Normal Range of Motion Respiratory/Chest: Present: Clear to Auscultation, Good Air Exchange. No: Respiratory Distress, Accessory Muscle Use Cardiovascular: Present: Regular Rate and Rhythm, Normal S1, S2. No: Murmurs Abdomen: Present: Normal Bowel Sounds, Other (Soft). No: Tenderness, Distention, Peritoneal Signs, Rebound, Guarding, McBurney's Point Tender, Rovsing's Sign Present Back: Present: Normal Inspection Upper Extremity: Present: Normal Inspection. No: Cyanosis, Edema Lower Extremity: Present: Normal Inspection. No: Edema Neurological: Present: GCS=15, CN II-XII Intact, Speech Normal Skin: Present: Warm, Dry, Normal Color. No: Rashes Psychiatric: Present: Alert, Oriented x 3, Normal Insight, Normal Concentration Medical Decision Making ED Course and Treatment: 08/21/18 23:01 Pt presented to emergency department for stated history. Labs was ordered and reviewed and all wnl she continued to complain of pain on re evaluation and was admitted for Lupus flare up Case was MAGGIE Ann who accepted pt for admission - Lab Interpretations Lab Results: 08/20/18 20:30 08/20/18 21:31 Lab Results 08/20/18 21:31: Sodium 140, Potassium Pending, Chloride 109 H, Carbon Dioxide 23, Anion Gap 12, BUN 17, Creatinine 0.7, Est GFR ( Amer) > 60, Est GFR (Non-Af Amer) > 60, Random Glucose 96, Calcium 8.9, Magnesium 2.3 H, Total Bilirubin 0.4, AST 20, ALT 27, Alkaline Phosphatase 102, Total Protein 7.7, Albumin 4.4, Globulin 3.3, Albumin/Globulin Ratio 1.3, Lipase 107 08/20/18 20:30: PT 11.9, INR 1.04, APTT 27.8 08/20/18 20:30: WBC 10.1, RBC 4.72, Hgb 13.8, Hct 40.6, MCV 86.0, MCH 29.2, MCHC 34.0, RDW 13.3, Plt Count 301, MPV 10.2, Gran % 65.6, Lymph % (Auto) 26.6, [place] % (Auto) 4.8, Eos % (Auto) 2.9, Baso % (Auto) 0.1, Gran # 6.60 H, Lymph # (Auto) 2.7, [place] # (Auto) 0.5, Eos # (Auto) 0.3, Baso # (Auto) 0.01 08/20/18 19:45: Urine Color Yellow, Urine Appearance Clear, Urine pH 6.0, Ur Specific [place] >= 1.030, Urine Protein Trace H, Urine Glucose (UA) Negative, Urine Ketones Negative, Urine Blood Negative, Urine Nitrate Negative, Urine Bilirubin Negative, Urine Urobilinogen 0.2, Ur Leukocyte Esterase Negative, Urine RBC Negative, Urine WBC 2 - 5, Ur Epithelial Cells 4 - 5, Urine Bacteria Few - RAD Interpretation Radiology Orders: 08/20/18 22:25 CHEST PORTABLE [RAD] Stat - Medication Orders Current Medication Orders: Discontinued Medications Sodium Chloride (Sodium Chloride 0.9%) 1,000 mls @ 1,000 mls/hr IV .Q1H STA Stop: 08/20/18 20:43 Last Admin: 08/20/18 20:00 Dose: 1,000 mls/hr eMAR Start Stop Document 08/20/18 20:00 EB (Rec: 08/20/18 20:00 EB [facility] Intravenous Solution Start Date 08/20/18 Start Time 20:00 End Date 08/20/18 End time 21:00 Total Infusion Time 60 Ketorolac Tromethamine (Toradol) 30 mg IVP STAT STA Stop: 08/20/18 19:47 Last Admin: 08/20/18 19:59 Dose: 30 mg MAR Pain Assessment Document 08/20/18 19:59 EB (Rec: 08/20/18 20:00 [facility] Pain Reassessment Is this a pain reassessment? No Sleep Is patient sleeping during reassessment? No Presence of Pain Presence of Pain Yes Pain Scale Used Protocol: PSCALES Pain Scale Used Numeric Description Intensity of Pain at present 9 IVP Administration Document 08/20/18 19:59 EB (Rec: 08/20/18 20:00 [facility]) Charges for Administration # of IVP Administrations 1 Methylprednisolone (Solu-Medrol) 125 mg IVP STAT STA Stop: 08/20/18 19:47 Last Admin: 08/20/18 19:59 Dose: 125 mg IVP Administration Document 08/20/18 19:59 EB (Rec: 08/20/18 19:59 [facility]) Charges for Administration # of IVP Administrations 1 Ondansetron HCl (Zofran Inj) 4 mg IVP STAT STA Stop: 08/20/18 19:45 Last Admin: 08/20/18 19:59 Dose: 4 mg IVP Administration Document 08/20/18 19:59 EB (Rec: 08/20/18 19:59 [facility]) Charges for Administration # of IVP Administrations 1 Disposition/Present on Arrival - Present on Arrival Any Indicators Present on Arrival: No History of DVT/PE: No History of Uncontrolled Diabetes: No Urinary Catheter: No History of Decub. Ulcer: No History Surgical Site Infection Following: None - Disposition Have Diagnosis and Disposition been Completed?: Yes Diagnosis: SLE (systemic lupus erythematosus), Vomiting Disposition: HOSPITALIZED Disposition Time: 22:25 Patient Plan: Admission Condition: FAIR
--- NOTE | 2018-08-20 23:26 | CP.PCM.HP ---
<Julius Ponce - Last Filed: 08/21/18 02:50> History of Present Illness - History of Present Illness History of Present Illness: Julius Ponce DO PGY1 - Internal Medicine Drawbench Operator - Medicine H&P CC: N/V, Lethargy 33F w/ a PMH of Lupus, RA who presented to [facility] ED on 08/20/17 w/ c/o x1 wk of NBNB vomitus, and Lethargy. She reported that she regularly follows w/ Dr. Dutta her rheumatolgist who has kept her on a regimen of chloroquine 200 daily. Patient reports she undergoes flair monthly during which time she take a 1 week course of prednisone. Patient cannot recall what triggers her flair however she reported that she had flaired 1mo ago and was unable to take her prednisone. She reports her flair symptoms typically consist of malaise/lethargy, arthralgias, and nausea/vomiting. She denies any urinary symptoms during her flairs. Upon evaluation she reports worsening of all of the aforementioned symptoms. Upon ROS patient denies fevers, chills, chest pain, abd pain, d/c, focal weakness. Remainder of 12 system ROS is otherwise negative PMD: Keely Rheum: [place] Pharmacy: [facility] Home RX: Hydroxychloroquine 200mg QD, HUMIRA? Q2W, *Unconfirmed w/ pharmacy* PMH: Diabetes (resolved/ prediabetic), Lupus, RA PSH: Denies Social: Denies EtOH, Smoking, Illicit Drugs, Present on Admission - Present on Admission Any Indicators Present on Admission: No Review of Systems - Review of Systems All systems: reviewed and no additional remarkable complaints except Review of Systems: as per HPI Past Patient History - Infectious Disease Hx of Infectious Diseases: None - Tetanus Immunizations Tetanus Immunization: Unknown - Past Medical History & Family History Past Medical History?: Yes - Past Social History Smoking Status: Never Smoked - CARDIAC Hx Cardiac Disorders: No - PULMONARY Hx Respiratory Disorders: Yes Hx Asthma: Yes - NEUROLOGICAL Hx Neurological Disorder: Yes Hx Migraine: Yes - HEENT Hx HEENT Problems: No - RENAL Hx Chronic Kidney Disease: No - ENDOCRINE/METABOLIC Hx Endocrine Disorders: Yes Hx Diabetes Mellitus Type 2: Yes Hx Systemic Lupus Erythematosus: Yes - HEMATOLOGICAL/ONCOLOGICAL Hx Blood Disorders: No - INTEGUMENTARY Hx Dermatological Problems: No - MUSCULOSKELETAL/RHEUMATOLOGICAL Hx Musculoskeletal Disorders: No Hx Falls: No - GASTROINTESTINAL Hx Gastrointestinal Disorders: No - GENITOURINARY/GYNECOLOGICAL Hx Genitourinary Disorders: Yes Hx Urinary Tract Infection: Yes Other/Comment: 5 natural delivery - PSYCHIATRIC Hx Psychophysiologic Disorder: Yes Hx Bipolar Disorder: Yes Hx Substance Use: No - SURGICAL HISTORY Hx Appendectomy: Yes Hx Cholecystectomy: Yes - ANESTHESIA Hx Anesthesia: Yes Hx Anesthesia Reactions: No Hx Malignant Hyperthermia: No Meds Allergies/Adverse Reactions: Allergies Allergy/AdvReac Type Severity Reaction Status Date / Time latex Allergy RASH Verified 09/20/17 18:56 nut - unspecified [nut] Allergy RASH Verified 09/20/17 18:56 Penicillins Allergy RASH Verified 09/20/17 18:56 Physical Exam - Constitutional Appears: Well, Non-toxic, No Acute Distress - Head Exam Head Exam: ATRAUMATIC, NORMOCEPHALIC - Eye Exam Eye Exam: EOMI, Normal appearance, PERRL - ENT Exam ENT Exam: Mucous Membranes Moist - Respiratory Exam Respiratory Exam: Clear to Auscultation Bilateral, NORMAL BREATHING PATTERN - Cardiovascular Exam Cardiovascular Exam: RRR, +S1, +S2 - GI/Abdominal Exam GI & Abdominal Exam: Normal Bowel Sounds, Soft - Extremities Exam Additional comments: Distal pulses 2+ bilaterally - Neurological Exam Neurological exam: Alert, CN II-XII Intact, Oriented x3 - Psychiatric Exam Psychiatric exam: Normal Affect, Normal Mood - Skin Skin Exam: Dry, Intact, Normal Color, Warm Results - Vital Signs Recent Vital Signs: Last Vital Signs Temp 97.6 F 08/20/18 20:36 Pulse 89 08/20/18 18:52 Resp 16 08/20/18 20:36 BP 120/80 08/20/18 20:36 Pulse Ox 100 08/20/18 20:36 - Labs Result Diagrams: 08/20/18 20:30 08/20/18 21:31 Labs: Laboratory Results - last 24 hr 08/20/18 08/20/18 08/20/18 19:45 20:30 20:30 WBC 10.1 RBC 4.72 Hgb 13.8 Hct 40.6 MCV 86.0 MCH 29.2 MCHC 34.0 RDW 13.3 Plt Count 301 MPV 10.2 Gran % 65.6 Lymph % (Auto) 26.6 [place] % (Auto) 4.8 Eos % (Auto) 2.9 Baso % (Auto) 0.1 Gran # 6.60 H Lymph # (Auto) 2.7 [place] # (Auto) 0.5 Eos # (Auto) 0.3 Baso # (Auto) 0.01 PT 11.9 INR 1.04 APTT 27.8 Sodium Potassium Chloride Carbon Dioxide Anion Gap BUN Creatinine Est GFR ( Amer) Est GFR (Non-Af Amer) Random Glucose Calcium Magnesium Total Bilirubin AST ALT Alkaline Phosphatase Total Protein Albumin Globulin Albumin/Globulin Ratio Lipase Urine Color Yellow Urine Appearance Clear Urine pH 6.0 Ur Specific [place] >= 1.030 Urine Protein Trace H Urine Glucose (UA) Negative Urine Ketones Negative Urine Blood Negative Urine Nitrate Negative Urine Bilirubin Negative Urine Urobilinogen 0.2 Ur Leukocyte Esterase Negative Urine RBC Negative Urine WBC 2 - 5 Ur Epithelial Cells 4 - 5 Urine Bacteria Few 08/20/18 21:31 WBC RBC Hgb Hct MCV MCH MCHC RDW Plt Count MPV Gran % Lymph % (Auto) [place] % (Auto) Eos % (Auto) Baso % (Auto) Gran # Lymph # (Auto) [place] # (Auto) Eos # (Auto) Baso # (Auto) PT INR APTT Sodium 140 Potassium 4.1 Chloride 109 H Carbon Dioxide 23 Anion Gap 12 BUN 17 Creatinine 0.7 Est GFR ( Amer) > 60 Est GFR (Non-Af Amer) > 60 Random Glucose 96 Calcium 8.9 Magnesium 2.3 H Total Bilirubin 0.4 AST 20 ALT 27 Alkaline Phosphatase 102 Total Protein 7.7 Albumin 4.4 Globulin 3.3 Albumin/Globulin Ratio 1.3 Lipase 107 Urine Color Urine Appearance Urine pH Ur Specific [place] Urine Protein Urine Glucose (UA) Urine Ketones Urine Blood Urine Nitrate Urine Bilirubin Urine Urobilinogen Ur Leukocyte Esterase Urine RBC Urine WBC Ur Epithelial Cells Urine Bacteria Assessment & Plan - Assessment and Plan (Free Text) Assessment: 33F w/ a PMH of Lupus, RA who presented to [facility] ED on 08/20/17 w/ c/o x1 wk of NBNB vomitus, and Lethargy. Lupus Flare w/ N/V F/u C3/C4 ESR/CRP AntiDsDNA Spot Creatinine : Protein ratio Rapid Flu Solumedrol 125mg given in ED Start Solumedrol 40mg QD Tylenol 650mg PRN pain Zofran 4mg Q6H PRN C/w Home Plaquenil 300 QD NPO C/w NS 100cc /hr Hx DM - Pt. reports resolved F/u A1C in AM PPX: DVT: Heparin 5000 Q8 GI: Protonix 40 IVP Patient was seen, examined, and discussed w/ attending physician Dr. Marissa Ponce DO PGY1 - Internal Medicine Drawbench Operator <Virgil Ann - Last Filed: 08/21/18 05:34> Results - Vital Signs Recent Vital Signs: Last Vital Signs Temp 97.6 F 08/20/18 20:36 Pulse 89 08/20/18 18:52 Resp 17 08/21/18 02:01 BP 120/80 08/20/18 20:36 Pulse Ox 100 08/20/18 20:36 - Labs Result Diagrams: 08/20/18 20:30 08/20/18 21:31 Labs: Laboratory Results - last 24 hr 08/20/18 08/20/18 08/20/18 19:45 20:30 20:30 WBC 10.1 RBC 4.72 Hgb 13.8 Hct 40.6 MCV 86.0 MCH 29.2 MCHC 34.0 RDW 13.3 Plt Count 301 MPV 10.2 Gran % 65.6 Lymph % (Auto) 26.6 [place] % (Auto) 4.8 Eos % (Auto) 2.9 Baso % (Auto) 0.1 Gran # 6.60 H Lymph # (Auto) 2.7 [place] # (Auto) 0.5 Eos # (Auto) 0.3 Baso # (Auto) 0.01 ESR PT 11.9 INR 1.04 APTT 27.8 Sodium Potassium Chloride Carbon Dioxide Anion Gap BUN Creatinine Est GFR ( Amer) Est GFR (Non-Af Amer) Random Glucose Calcium Magnesium Total Bilirubin AST ALT Alkaline Phosphatase Total Protein Albumin Globulin Albumin/Globulin Ratio Lipase Urine Color Yellow Urine Appearance Clear Urine pH 6.0 Ur Specific [place] >= 1.030 Urine Protein Trace H Urine Glucose (UA) Negative Urine Ketones Negative Urine Blood Negative Urine Nitrate Negative Urine Bilirubin Negative Urine Urobilinogen 0.2 Ur Leukocyte Esterase Negative Urine RBC Negative Urine WBC 2 - 5 Ur Epithelial Cells 4 - 5 Urine Bacteria Few 08/20/18 08/20/18 20:30 21:31 WBC RBC Hgb Hct MCV MCH MCHC RDW Plt Count MPV Gran % Lymph % (Auto) [place] % (Auto) Eos % (Auto) Baso % (Auto) Gran # Lymph # (Auto) [place] # (Auto) Eos # (Auto) Baso # (Auto) ESR 17 PT INR APTT Sodium 140 Potassium 4.1 Chloride 109 H Carbon Dioxide 23 Anion Gap 12 BUN 17 Creatinine 0.7 Est GFR ( Amer) > 60 Est GFR (Non-Af Amer) > 60 Random Glucose 96 Calcium 8.9 Magnesium 2.3 H Total Bilirubin 0.4 AST 20 ALT 27 Alkaline Phosphatase 102 Total Protein 7.7 Albumin 4.4 Globulin 3.3 Albumin/Globulin Ratio 1.3 Lipase 107 Urine Color Urine Appearance Urine pH Ur Specific [place] Urine Protein Urine Glucose (UA) Urine Ketones Urine Blood Urine Nitrate Urine Bilirubin Urine Urobilinogen Ur Leukocyte Esterase Urine RBC Urine WBC Ur Epithelial Cells Urine Bacteria Attending/Attestation - Attestation I have personally seen and examined this patient.: Yes I have fully participated in the care of the patient.: Yes I have reviewed all pertinent clinical information: Yes Notes (Text): 08/21/18 05:32 Patient was seen when she was in the ER in bed # 11. Medical record was reviewed. Agree with history, physical examination, assessment and plan with some inclusions, exclusions. 33 year old woman comes in with complaints of bodyache, vomitng has PMH of SLE, Rheumatoid arthrritis, ashtma,fatty liver, multiple times UTI, allergy to latex, PCN, GERD, increase cholesterol level in the past, migraines, post psychosis, increase intraocular pressure in left eye in the past that has become normal, cholecystectomy, appendectomy,tonsillectomy, 9 lb weight loss in 2 weeks,family history of Alzheimer's,DM (Mother),colon cancer(Brother),breast cancer(Sister).
[2018-08-21] MEDS ORDERED: Sodium Chloride 0.9% 1,000 ML IV SCH (03:15)
[2018-08-21] MEDS ORDERED: Alum-Mag Hydrox-Simethicone Susp (30 mL) PO ONE (05:39)
[2018-08-21] MEDS ORDERED: Pantoprazole 40 mg EC Tab PO SCH (06:00)
[2018-08-21 06:40] LABS: GRAN # 6.57 (1.4-6.5); GRAN % 84.7 % (50.0-68.0); HEMOGLOBIN 13.3 g/dL (12.0-16.0); LYMPH # 1.1 (1.2-3.4); LYMPH % 14.5 % (22.0-35.0); MEAN CELL VOLUME 86.4 fl (80.0-105.0); MEAN CORPUSCULAR HEMOGLOBIN 28.7 pg (25.0-35.0); MEAN CORPUSCULAR HGB CONC 33.2 g/dl (31.0-37.0); MONO # 0.1 (0.1-0.6); MONO % 0.8 % (1.0-6.0); RBC 4.64 10^6/uL (3.5-6.1); RED CELL DISTRIBUTION WIDTH 13.2 % (11.5-14.5); WHITE BLOOD COUNT 7.8 10^3/uL (4.5-11.0)
[2018-08-21 07:11] LABS: ALB/GLOB RATIO 1.3 (1.1-1.8); ALBUMIN 4.6 g/dL (3.0-4.8); ALT/SGPT 28 U/L (7-56); AST/SGOT 22 U/L (14-36); BLOOD UREA NITROGEN 17 mg/dL (7-21); CALCIUM 9.5 mg/dL (8.4-10.5); GFR NON-AFRICAN AMERICAN > 60
--- NOTE | 2018-08-21 09:00 | RAD ---
Date of service: 08/21/2018 HISTORY: admission COMPARISON: 03/06/2013 FINDINGS: LUNGS: The lungs are well inflated and clear. PLEURA: No pleural effusions or pneumothorax. CARDIOVASCULAR: The heart is normal in size. No aortic atherosclerotic calcification present. OSSEOUS STRUCTURES: Within normal limits for the patient's age. VISUALIZED UPPER ABDOMEN: Normal. OTHER FINDINGS: None. IMPRESSION: No active pulmonary disease.
[2018-08-21] MEDS ORDERED: MethylPREDNISolone 40 mg Vial IV SCH (10:00)
[2018-08-21 12:40] VITALS: PULSE 77; RESP 20; TEMP 98; O2SAT 98
--- NOTE | 2018-08-21 12:56 | CP.PCM.DIS ---
Provider - Provider Date of Admission: 08/20/18 22:23 Attending physician: Tala Ponce DO Primary care physician: Fallon Riggs Time Spent in preparation of Discharge (in minutes): 45 Diagnosis - Discharge Diagnosis (1) Nausea Status: Resolved (2) History of lupus Status: Chronic (3) Hx of rheumatoid arthritis Status: Chronic (4) Vomiting Status: Resolved Hospital Course - Lab Results Lab Results: Most Recent Lab Values WBC 7.8 10^3/uL (4.5-11.0) D 08/21/18 06:00 RBC 4.64 10^6/uL (3.5-6.1) 08/21/18 06:00 Hgb 13.3 g/dL (12.0-16.0) 08/21/18 06:00 Hct 40.1 % (36.0-48.0) 08/21/18 06:00 MCV 86.4 fl (80.0-105.0) 08/21/18 06:00 MCH 28.7 pg (25.0-35.0) 08/21/18 06:00 MCHC 33.2 g/dl (31.0-37.0) 08/21/18 06:00 RDW 13.2 % (11.5-14.5) 08/21/18 06:00 Plt Count 302 10^3/uL (120.0-450.0) 08/21/18 06:00 MPV 10.0 fl (7.0-11.0) 08/21/18 06:00 Gran % 84.7 % (50.0-68.0) H 08/21/18 06:00 Lymph % (Auto) 14.5 % (22.0-35.0) L 08/21/18 06:00 [place] % (Auto) 0.8 % (1.0-6.0) L 08/21/18 06:00 Eos % (Auto) 0.0 % (1.5-5.0) L 08/21/18 06:00 Baso % (Auto) 0.0 % (0.0-3.0) 08/21/18 06:00 Gran # 6.57 (1.4-6.5) H 08/21/18 06:00 Lymph # (Auto) 1.1 (1.2-3.4) L 08/21/18 06:00 [place] # (Auto) 0.1 (0.1-0.6) 08/21/18 06:00 Eos # (Auto) 0.0 (0.0-0.7) 08/21/18 06:00 Baso # (Auto) 0.00 K/mm3 (0.0-2.0) 08/21/18 06:00 ESR 17 mm/hr (0.0-20.0) 08/20/18 20:30 PT 11.9 SECONDS (9.4-12.5) 08/20/18 20:30 INR 1.04 08/20/18 20:30 APTT 27.8 Seconds (25.1-36.5) 08/20/18 20:30 Sodium 139 mmol/L (132-148) 08/21/18 06:00 Potassium 4.6 mmol/L (3.6-5.0) 08/21/18 06:00 Chloride 106 mmol/L (98-107) 08/21/18 06:00 Carbon Dioxide 24 mmol/L (21-33) 08/21/18 06:00 Anion Gap 14 (10-20) 08/21/18 06:00 BUN 17 mg/dL (7-21) 08/21/18 06:00 Creatinine 0.6 mg/dl (0.7-1.2) L 08/21/18 06:00 Est GFR ( Amer) > 60 08/21/18 06:00 Est GFR (Non-Af Amer) > 60 08/21/18 06:00 Random Glucose 134 mg/dL (70-110) H 08/21/18 06:00 Calcium 9.5 mg/dL (8.4-10.5) 08/21/18 06:00 Phosphorus 3.9 mg/dL (2.5-4.5) 08/21/18 06:00 Magnesium 2.2 mg/dL (1.7-2.2) 08/21/18 06:00 Total Bilirubin 0.5 mg/dL (0.2-1.3) 08/21/18 06:00 AST 22 U/L (14-36) 08/21/18 06:00 ALT 28 U/L (7-56) 08/21/18 06:00 Alkaline Phosphatase 100 U/L (38-126) 08/21/18 06:00 Total Protein 8.1 g/dL (5.8-8.3) 08/21/18 06:00 Albumin 4.6 g/dL (3.0-4.8) 08/21/18 06:00 Globulin 3.5 gm/dL 08/21/18 06:00 Albumin/Globulin Ratio 1.3 (1.1-1.8) 08/21/18 06:00 Lipase 107 U/L (23-300) 08/20/18 21:31 Urine Color Yellow (YELLOW) 08/20/18 19:45 Urine Appearance Clear (CLEAR) 08/20/18 19:45 Urine pH 6.0 (4.7-8.0) 08/20/18 19:45 Ur Specific [place] >= 1.030 (1.005-1.035) 08/20/18 19:45 Urine Protein Trace mg/dL (<30 mg/dL) H 08/20/18 19:45 Urine Glucose (UA) Negative mg/dL (NEGATIVE) 08/20/18 19:45 Urine Ketones Negative mg/dL (NEGATIVE) 08/20/18 19:45 Urine Blood Negative (NEGATIVE) 08/20/18 19:45 Urine Nitrate Negative (NEGATIVE) 08/20/18 19:45 Urine Bilirubin Negative (NEGATIVE) 08/20/18 19:45 Urine Urobilinogen 0.2 E.U./dL (<1 E.U./dL) 08/20/18 19:45 Ur Leukocyte Esterase Negative [place]/uL (NEGATIVE) 08/20/18 19:45 Urine RBC Negative /hpf (0-2) 08/20/18 19:45 Urine WBC 2 - 5 /hpf (0-6) 08/20/18 19:45 Ur Epithelial Cells 4 - 5 /hpf (0-5) 08/20/18 19:45 Urine Bacteria Few /hpf (NONE) 08/20/18 19:45 Ur Random Creatinine 125 mg/dL 08/21/18 06:45 U Random Total Protein 7 mg/L 08/21/18 06:45 - Hospital Course Hospital Course: HPI at time of admission: "33F w/ a PMH of Lupus, RA who presented to [facility] ED on 08/20/17 w/ c/o x1 wk of NBNB vomitus, and Lethargy. She reported that she regularly follows w/ Dr. Dutta her rheumatolgist who has kept her on a regimen of chloroquine 200 daily. Patient reports she undergoes flair monthly during which time she take a 1 week course of prednisone. Patient cannot recall what triggers her flair however she reported that she had flaired 1mo ago and was unable to take her prednisone. She reports her flair symptoms typically consist of malaise/lethargy, arthralgias, and nausea/vomiting. She denies any urinary symptoms during her flairs. Upon evaluation she reports worsening of all of the aforementioned symptoms. Upon ROS patient denies fevers, chills, chest pain, abd pain, d/c, focal weakness." Hospital Course: Pt was admitted for n/v likely 2/2 lupus flare-up and non-compliance with taking steroid medications as prescribed by her Waterproof Material Folder. Bloodwork during admission was wnl. U/a did not demonstrate signs of UTI. CXR on admission demonstrated no acute findings. On discharge, pt was able to ambulate without concerns and was able to tolerate PO diet without associated n/v. She was discharged to home in stable condition on 08/21/18. Instructed to f/u with her PMD Dr. Riggs within 3-5 days of d/c. Instructed to f/u with primary Waterproof Material Folder Dr. Nelson within 1 week of discharge. Educated about importance of compliance with lupus medications prescribed by her Waterproof Material Folder to prevent acute flare-ups and symptoms. Given script for Prednisone daily x 10 d on d/c. Instructed to call her PMD or Waterproof Material Folder if her symptoms worsen. Discharge Exam - Head Exam Head Exam: ATRAUMATIC, NORMOCEPHALIC - Eye Exam Eye Exam: EOMI, Normal appearance, PERRL - Respiratory Exam Respiratory Exam: Clear to PA & Lateral, NORMAL BREATHING PATTERN, UNREMARKABLE. absent: Rales, Rhonchi, Wheezes - Cardiovascular Exam Cardiovascular Exam: REGULAR RHYTHM, +S1, +S2. absent: Gallop, Rubs, Systolic Murmur - GI/Abdominal Exam GI & Abdominal Exam: Normal Bowel Sounds, Soft, Unremarkable. absent: Distended, Guarding, Tenderness - Extremities Exam Extremities exam: full ROM, normal capillary refill, normal inspection, pedal pulses present - Neurological Exam Neurological exam: Alert, CN II-XII Intact, Normal Gait, Oriented x3, Reflexes Normal - Skin Skin Exam: Dry, Intact, Normal Color, Warm Discharge Plan - Discharge Medications Prescriptions: predniSONE [predniSONE Tab] 10 mg PO DAILY 10 Days tab - Follow Up Plan Condition: FAIR Disposition: HOME/ ROUTINE Instructions: Lupus Additional Instructions: Please follow-up with your primary care physician (Dr. Riggs) within 3-5 days of discharge. Please follow-up with your Waterproof Material Folder, Dr Dutta, within 3-5 days of discharge so he may monitor you Lupus and make medications adjustments if necessary. Please remember to follow your environmental monitoring specialist's recommendations such as taking the prednisone as he prescribes - this will prevent future flares. Please resume home medication Plaquenil 200 mg daily as prescribed by your environmental monitoring specialist. Please resume any other home medications which were prescribed by your Primary Medical Doctor. If symptoms return, please go to your nearest emergency department. Referrals: Fallon Riggs MD [Primary Care Provider] -
[2018-08-21 16:53] LABS: COMPLEMENT C4 47.1 mg/dL (14.0-44.0)
== END 2018-08-21 15:52 | disposition home or self-care (01) ==
LOC: ED 18:52 → ERH 22:23 → 3RNO 08-21 02:15
PROVIDERS: ADMIT Hospitalist; ATTEND Hospitalist
DX: R11.2 Nausea with vomiting, unspecified (principal); M06.9 Rheumatoid arthritis, unspecified; M32.9 Systemic lupus erythematosus, unspecified; F31.9 Bipolar disorder, unspecified; J45.909 Unspecified asthma, uncomplicated; Z87.440 Personal history of urinary (tract) infections; Z90.49 Acquired absence of other specified parts of digestive tract; Z91.19 Patient's noncompliance with other medical treatment and regimen; G43.909 Migraine, unspecified, not intractable, without status migrainosus; Z88.0 Allergy status to penicillin; Z91.040 Latex allergy status; Z91.018 Allergy to other foods; K76.0 Fatty (change of) liver, not elsewhere classified; K21.9 Gastro-esophageal reflux disease without esophagitis; Z81.8 Family history of other mental and behavioral disorders; Z83.3 Family history of diabetes mellitus; Z80.0 Family history of malignant neoplasm of digestive organs; Z80.3 Family history of malignant neoplasm of breast
CPT/HCPCS: 36415; 71045; 80053; 81001; 82570; 83036; 83690; 83735; 84100; 84156; 85025; 85610; 85651; 85730; 86039; 86140; 86160; 86225; 96361; 96372; 96374; 96375; 96376; 97162; 97530; 99283; C9113; G0378; G8978; G8979; J1644; J1885; J2405; J2920; J2930; J7030